=== PATIENT | female | born 1985 | race Caucasian/White ===

== ENCOUNTER 2016-09-11 05:48 | Emergency (ER) | payer OTHER ==
[2016-09-11 06:16] LABS: HEMOGLOBIN 12.9 gm/dl (12.3-15.3); RED BLOOD COUNT 4.43 M/UL (4.00-5.10); WHITE BLOOD COUNT 9.5 K/UL (4.5-11.0)
[2016-09-11 06:37] LABS: BUN/CREATININE RATIO 16 (0-10)
== END 2016-09-11 09:10 | disposition home or self-care (01) ==
LOC: ER1 05:48
PROVIDERS: Specialist/Technologist Athletic Trainer
DX: R07.89 Other chest pain (principal); R74.8 Abnormal levels of other serum enzymes; T50.5X5A Adverse effect of appetite depressants, initial encounter
CPT/HCPCS: 36415; 71010; 80053; 82550; 82553; 83874; 84484; 85025; 93005; 96360; 99285